=== PATIENT | male | born 1970 | race Caucasian/White ===

== ENCOUNTER → 2016-06-16 | Outpatient (CLI) | payer OTHER ==
--- NOTE | 2016-06-16 14:43 | PN ---
DATE OF SERVICE: 06/16/2016 A 45-year-old gentleman who has been followed in the sleep center on treatment of obstructive sleep apnea/hypopnea syndrome. Patient continued to use his CPAP equipment every night for the whole night without significant problems. No snoring with the machine. No symptoms of significant excessive daytime sleepiness. [place] Sleepiness Scale today is 6. Patient likes his mask and machine works well. MEDICATIONS: Enalapril. PHYSICAL EXAMINATION: GENERAL: During physical exam, the patient in no distress. VITAL SIGNS: BP 124/91, HR 62, RR 16. Height 63-3/4, weight 245.4. BMI 36.4. Temp is 97.7, oxygen saturation at room air 97%. HEENT: PERRLA, EOMI. Evaluation of oropharynx showed moderately low position of soft palate. NECK: Supple. No JVD, Thyroid is not palpable. LUNGS: Clear to percussion and to auscultation. Good air exchange. No wheezing or rhonchi. HEART: S1, S2 regular. No murmurs, gallops, or rubs. ABDOMEN: Obese. Soft and nontender. Bowel sounds are present. No organomegaly appreciated. LOGISTICS OPERATIONS MANAGER: Awake, alert, and oriented x3. Cranial nerves 2 to 7 intact. There is no fasciculation or atrophy noted. No focal deficits observed. IMPRESSION: 1. Obstructive sleep apnea-hypopnea syndrome, clinically on control CPAP at 10 cm of water. No symptoms of excessive daytime sleepiness. No problem with usage of CPAP. 2. Obesity. 3. Hypertension. 4. Seasonal allergies. 5. Status post tonsillectomy. 6. Status post bilateral ankle surgery. 7. Right knee problem. PLAN: 1. Continue treatment with CPAP every night for the whole night with the same pressure of 10 cm of water. 2. Losing weight. Patient increased his weight of 3 pounds since previous visit. 3. Sleep hygiene with regular time in bed for at least 8 hours. 4. No driving if feeling any sleepiness. Thank you very much for allowing me to participate in the management of your patient. Sincerely, Osbaldo Vasquez MD, PhD, FAASM Diplomat of [place] [employer], Sleep Medicine Board by [place] [employer] [place] [employer] [facility] [place]
== END | disposition home or self-care (01) ==
LOC: SLEEP 10:46
PROVIDERS: ATTEND Internal Medicine
DX: G47.33 Obstructive sleep apnea (adult) (pediatric) (principal); E66.9 Obesity, unspecified; Z68.36 Body mass index [BMI] 36.0-36.9, adult; I10 Essential (primary) hypertension; Z91.09 Other allergy status, other than to drugs and biological substances; Z98.890 Other specified postprocedural states; Z79.899 Other long term (current) drug therapy